=== PATIENT | female | born 1970 | race Caucasian/White ===

== ENCOUNTER 2022-08-26 20:46 | Emergency (ER) | payer OTHER, SELFPAY ==
[2022-08-26] VITALS (12 sets, daily range): BP systolic 106–145; BP diastolic 68–93; PULSE 70; RESP 14–16; TEMP 36.3; O2SAT 99–100
[2022-08-26 21:21] LABS: Add Urine Microscopic? YES; Appearance Urine Clear (Clear); Bilirubin Urine Negative (Negative); Blood Urine Negative (Negative); Color Urine Light Yellow (Yellow); Glucose Urine UA Negative (Negative); Ketones Urine Negative (Negative); Leukocyte Esterase Ur 1+ LEU/UL (Negative); Nitrate Urine Negative (Negative); Protein Urine Negative (Negative); Specific Grav Ur 1.025 (1.001-1.035); Urobilinogen Urine 0.2 mg/dL (<2.0); pH Urine 6.5 (5.0-9.0)
[2022-08-26 21:21] LABS: Basophils Absolute Auto 0.1 K/mm3 (0.0-0.1); Basophils Percent Auto 0.6 % (0.2-1.2); Eosinophils Absolute Auto 0.2 K/mm3 (0-0.3); Eosinophils Percent Auto 1.9 % (0-4.4); Hematocrit 43.5 % (37.0-47.0); Hemoglobin 14.4 g/dL (12.0-15.0); Immature Granulocyte Absolute 0.05 K/mm3 (0.00-0.031); Immature Granulocyte Percent A 0.6 % (0-0.5); Lymphocytes Absolute Auto 2.39 K/mm3 (0.9-3.2); Lymphocytes Percent Auto 29.9 % (18.3-44.2); Mean Corpuscular HGB Conc 33.1 g/dl (32-36); Mean Corpuscular Hemoglobin 32.7 pg (26-34); Mean Corpuscular Volume 98.9 fl (80-100); Mean Platelet Volume 10.7 fl (7.4-10.4); Monocytes Absolute Auto 0.7 K/mm3 (0.1-0.6); Monocytes Percent Auto 8.3 % (2.6-8.5); Neutrophils Absolute Auto 4.7 K/mm3 (1.3-6.7); Neutrophils Percent Auto 58.7 % (45.5-73.1); Platelet Count Result 236 k/mm3 (150-375); Red Cell Distribution Width 12.6 % (11.5-14.5)
[2022-08-26 21:25] LABS: Mucus Urine Rare /lpf; Squamous Epithelial Cell Urine Moderate /hpf (Few); WBC Urine 16-20 /hpf
[2022-08-26 21:32] LABS: Alanine Aminotransferase 29 U/L (6-35); Albumin Level 4.5 g/dL (3.5-5.1); Alkaline Phosphatase 93 U/L (38-126); Anion Gap 5 mmol/L (8-16); Aspartate Amino Transferase 28 U/L (14-36); Bilirubin,Total 0.3 mg/dL (0.2-1.3); Blood Urea Nitrogen 25 mg/dL (7-17); Calcium 9.3 mg/dL (8.4-10.2); Carbon Dioxide 31 mmol/L (22-30); Chloride 99 mmol/L (98-107); Estimated CRCL calculation 78 ml/min; Estimated Glomerular Filt Rate > 60; Glucose 112 mg/dL (65-110); Potassium 4.9 mmol/L (3.4-5.0); Sodium 135 mmol/L (137-145)
[2022-08-26] MEDS: methylPREDNISolone SOD SUCC 125 MG VIAL IV PUSH (21:33)
[2022-08-26] MEDS: diphenhydrAMINE HCl INJ 50 MG/ML VIAL 25 MG IV PUSH (21:33)
[2022-08-26] MEDS: FAMOTIDINE 20 MG/2 ML VIAL IV PUSH (21:33)
--- NOTE | 2022-08-26 21:36 | ED.GENADULT ---
HPI - General Adult General Chief complaint: Seizure Stated complaint: altered loc Time Seen by Provider: 08/26/22 20:53 History of Present Illness HPI narrative: 51-year-old female history of drug abuse and heavy alcohol use presents to the emergency room from [facility] for shivering . Patient accompanied by a law enforcement History obtained by law enforcement and EMS. According to forest officer, patient was found lying flat in a prone position on the floor of her [facility] cell. Patient was unresponsive initially. inshore undersea warfare officer gave the patient a sternal rub where she woke up and began conversing. On presentation to the ER, patient is alert and oriented x3. Patient states that she was given 3 pills by the medical radiation dosimetrist in [facility] and is unsure what they were for. Related Data Allergies Allergy/AdvReac Type Severity Reaction Status Date / Time Penicillins Allergy Mild Difficulty Unverified 08/26/22 20:57 Swallowing Review of Systems Review of Systems: CONSTITUTIONAL: Denies fever, chills, or sweats. EYES: Denies visual changes, redness, or discharge. ENT: Denies rhinorrhea, congestion, sore throat, or otalgia. CARDIOVASCULAR: Denies chest pain, palpitations, or edema. RESPIRATORY: Denies cough or dyspnea. GASTROINTESTINAL: Denies abdominal pain, nausea, vomiting, or diarrhea. GENITOURINARY: Denies dysuria or hematuria. SKIN: Denies rash or itching. MUSCULOSKELETAL: Denies back pain, joint pain, or myalgia. NEUROLOGIC: Denies headache, numbness, dizziness, or weakness. PSYCHIATRIC: Denies anxiety or depression. Exam Narrative: GENERAL: Well-appearing, well-nourished, no physical limitations, and in no acute distress. Shivering HEAD: Normocephalic, atraumatic. EYES: Conjunctivae normal, PERRLA and EOMI. CHEST: Clear to auscultation. No respiratory distress. No wheezes rales or rhonchi. HEART: Regular rate and rhythm. No murmur heard. Normal peripheral pulses. ABDOMEN: Soft, nontender, nondistended, normal active bowel sounds. EXTREMITIES: Normal range of motion. No edema. No clubbing or cyanosis SKIN: Warm, dry, no rash. No noted wounds NEURO: No focal deficits. Alert and oriented x3. MAEW. CN's II-XI intact bilaterally, normal gait PSYCH: Cooperative. Normal mood and affect. Course Vital Signs Vital signs: Vital Signs Temperature 36.3 C L 08/26/22 20:46 Pulse Rate 70 08/26/22 20:46 Respiratory Rate 16 08/26/22 20:46 Blood Pressure 145/93 H 08/26/22 20:46 Pulse Oximetry 100 08/26/22 20:46 Oxygen Delivery Room Air 08/26/22 20:46 Temperature 36.3 C L 08/26/22 20:46 Pulse Rate 70 08/26/22 20:46 Respiratory Rate 16 08/26/22 20:46 Blood Pressure 145/93 H 08/26/22 20:46 Pulse Oximetry 100 08/26/22 21:22 Oxygen Delivery Room Air 08/26/22 21:22 Medical Decision Making MDM Narrative Medical decision making narrative: Patient presented to the emergency room for evaluation of a possible seizure-like activity. Patient denies having a seizure or history of seizures. According to forest officer, patient was just shivering. There is no incidence of altered mental status or loss of consciousness. It was determined that the patient was given a gram of Tylenol and 1 Augmentin accidentally by the medical staff at the correctional facility. Patient was given Benadryl, Solu-Medrol and Pepcid to prevent anaphylaxis. Labs were unremarkable, UA showed leukocytes. We will send patient home with Macrobid for UTI and a course of prednisone. Vital Signs Vital Signs: Vital Signs Temperature 36.3 C L 08/26/22 20:46 Pulse Rate 70 08/26/22 20:46 Respiratory Rate 16 08/26/22 20:46 Blood Pressure 145/93 H 08/26/22 20:46 Pulse Oximetry 100 08/26/22 20:46 Oxygen Delivery Room Air 08/26/22 20:46 Temperature 36.3 C L 08/26/22 20:46 Pulse Rate 70 08/26/22 20:46 Respiratory Rate 16 08/26/22 20:46 Blood Pressure 145/93 H 08/26/22 20:46 Pulse
[2022-08-26 21:42] LABS: Amphetamine Screen Urine Negative (Negative); Barbiturate Screen Urine Negative (Negative); Benzodiazepines Screen Urine Negative (Negative); Cannabinoid Screen Urine Negative (Negative); Cocaine Screen Urine Negative (Negative); Methadone Screen Urine Negative (Negative); Opiate Screen Urine Negative (Negative); Phencyclidine Screen Urine Negative (Negative)
== END 2022-08-26 22:59 ==
PROVIDERS: Emergency Provider Nurse Practitioner Family
DX: T39.1X1A Poisoning by 4-Aminophenol derivatives, accidental (unintentional), initial encounter (principal); T36.1X1A Poisoning by cephalosporins and other beta-lactam antibiotics, accidental (unintentional), initial encounter; N39.0 Urinary tract infection, site not specified
CPT/HCPCS: 36415; 80053; 80307; 81001; 85025; 87086; 96374; 96375; 99284; J1200; J2930